=== PATIENT | female | born 1940 | race Caucasian/White ===

== ENCOUNTER → 2018-08-23 08:36 | Day surgery (SDC) | payer MEDICARE ==
[~2018-08-23 08:36] MED LIST: Acetaminophen TAB* 325 MG PO PRN; Buffered Lidocaine 1% SYRIN* 1 ML/SYRINGE INTRADERM ONE; Bupivacaine 0.25% SDV PF* 10 ML VIAL INJ ONE; Dextrose 50% Syringe 50 ML* 25 GM/50 ML SYRINGE IV PUSH PRN; Famotidine IV* 10 MG/ML 2 ML (20 mg) IV ONE; Famotidine IV* 10 MG/ML 2 ML (20 mg) ONE; Insulin LISPRO* 1 UNITS UNIT SUBCUT ONE; Ketorolac INJ* 30 MG/ML 1 ML VIAL IV PRN; Lactated Ringers 1000 ML Bag* 1,000 ML IV SCH; Lidocaine 2% PF * 5 ML VIAL ONE; Midazolam* 1 MG/ML 2 ML VIAL (2 MG) ONE; Naloxone* 0.4 MG/ML 1 ML VIAL IV PRN; Ondansetron INJ* 2 MG/ML VIAL IV PRN; Propofol* 10 MG/ML 20 ML BTL ONE; ceFAZolin 2 GM PREMIX in ORs 2 GM/50 ML BAG IVPB ONE; fentaNYL* 50 MCG/ML 2 ML VIAL (100 MCG VIAL) ONE
[2018-08-23 11:31] VITALS: BP 115/68
--- NOTE | 2018-08-23 11:54 | OP ---
OPERATIVE REPORT: DATE OF OPERATION: 08/23/18 DATE OF : 44 SURGEON: Law Finn MD. FLANGER: None. ANESTHESIOLOGIST: Dr. Morales. ANESTHESIA: Local MAC. PRE-OP DIAGNOSIS: Recurrent left carpal tunnel syndrome. POST-OP DIAGNOSIS: Recurrent left carpal tunnel syndrome. OPERATIVE PROCEDURE: Revision left carpal tunnel release. INDICATIONS: Johanna is 77. The carpal tunnel release was done over 20 years ago. It has been recurren t in that left wrist and to some extent she has had some symptoms on the right side as well, but the left side is bothering her more. I told her that we would have some nerve wraps on hand, in case the re was some scar tissue that we encountered and try to prevent any adhesions to the nerve; but all in all she wanted to proceed with surgery. ESTIMATED BLOOD LOSS: 2 mL. COMPLICATIONS: None. FINDINGS: See above and below. DESCRIPTION OF PROCEDURE: Johanna was seen in the preoperative holding area. The correct site, side, a nd procedure were identified. We came back to the operating room and the arm was prepped and draped in the usual fashion. I had anesthetized the operative area with Marcaine and a time-out was perform ed. The arm was exsanguinated with the Esmarch and the tourniquet was inflated to 250 mmHg. I went ahead and made a 2 to 3-cm longitudinal incision in the typical location for an open carpal tunnel release . Dissection was carried down through the subcutaneous tissue in the palmar fascia. There was scar tissue noted and adherence between the palmar fascia and the transverse carpal ligament. The transve rse carpal ligament was released just off the radial aspect of the hook of the hamate and the release was completed distally and proximally with the tenotomy scissors. Proximally, I did release the sub cutaneous tissue in a fashion I was able to mobilize that and retract it out of the way with the self retrainer and the Sen retractor enough, so that I had good visualization and I could safely perform the proximal release under direct visualization. Once I confirmed the release proximally and distal ly and everything was looking good, I irrigated out the wound. The skin was closed with 4-0 nylon sut ure. Soft dressings were applied and she was taken to the recovery room in stable condition. [id number]/[facility] #: [id number]
== END | disposition home or self-care (01) ==
LOC: OR 08:36
PROVIDERS: ATTEND Orthopaedic Surgery Hand Surgery
DX: G56.02 Carpal tunnel syndrome, left upper limb (principal); I48.91 Unspecified atrial fibrillation; Z79.01 Long term (current) use of anticoagulants; E11.9 Type 2 diabetes mellitus without complications; Z79.4 Long term (current) use of insulin; I10 Essential (primary) hypertension; J45.909 Unspecified asthma, uncomplicated; E78.5 Hyperlipidemia, unspecified; I44.7 Left bundle-branch block, unspecified; I25.10 Atherosclerotic heart disease of native coronary artery without angina pectoris; Z95.1 Presence of aortocoronary bypass graft; G47.33 Obstructive sleep apnea (adult) (pediatric); E66.9 Obesity, unspecified
CPT/HCPCS: J0690; J2250; J2704; J3010; J3490

== ENCOUNTER 2019-05-11 10:23 | Day surgery (SDC) | payer MEDICARE ==
[~2019-05-11 10:23] MED LIST changes: -Acetaminophen TAB* 325 MG PO PRN; -Bupivacaine 0.25% SDV PF* 10 ML VIAL INJ ONE; +Dexamethasone IV* 4 MG/ML 1 ML (4 MG) IV SLOW PU ONE; -Dextrose 50% Syringe 50 ML* 25 GM/50 ML SYRINGE IV PUSH PRN; -Famotidine IV* 10 MG/ML 2 ML (20 mg) ONE; -Insulin LISPRO* 1 UNITS UNIT SUBCUT ONE; -Ketorolac INJ* 30 MG/ML 1 ML VIAL IV PRN; -Lidocaine 2% PF * 5 ML VIAL ONE; -Midazolam* 1 MG/ML 2 ML VIAL (2 MG) ONE; -Naloxone* 0.4 MG/ML 1 ML VIAL IV PRN; -Ondansetron INJ* 2 MG/ML VIAL IV PRN; -Propofol* 10 MG/ML 20 ML BTL ONE; -ceFAZolin 2 GM PREMIX in ORs 2 GM/50 ML BAG IVPB ONE; -fentaNYL* 50 MCG/ML 2 ML VIAL (100 MCG VIAL) ONE
[2019-05-11] MEDS ORDERED: Dexamethasone IV* 4 MG/ML 1 ML (4 MG) ONE (11:36)
[2019-05-11] MEDS ORDERED: ceFAZolin 2 GM in NS PREMIX(*) 2 GM/100 ML BAG IVPB ONE (11:36)
[2019-05-11] MEDS ORDERED: Famotidine IV* 10 MG/ML 2 ML (20 mg) ONE (11:36)
[2019-05-11] MEDS ORDERED: fentaNYL* 50 MCG/ML 2 ML VIAL (100 MCG VIAL) ONE (12:22)
[2019-05-11] MEDS ORDERED: Ondansetron INJ* 2 MG/ML VIAL ONE (12:22)
[2019-05-11] MEDS ORDERED: Midazolam* 1 MG/ML 2 ML VIAL (2 MG) ONE (12:22)
[2019-05-11] MEDS ORDERED: Propofol* 10 MG/ML 20 ML BTL ONE (12:22)
[2019-05-11] MEDS ORDERED: Bupivacaine 0.25% SDV PF* 10 ML VIAL INJ ONE ×2 (12:46→13:43)
[2019-05-11] MEDS ORDERED: Naloxone* 0.4 MG/ML 1 ML VIAL IV PRN (13:10)
[2019-05-11 14:57] VITALS: BP 121/78
--- NOTE | 2019-05-11 22:05 | OP ---
DATE OF OPERATION: 05/11/[address] - [facility] DATE OF : 44 SURGEON: Law Finn MD. GATHERING WORKER: SACHIN Stratton. ANESTHESIOLOGIST: Dr. Bush. ANESTHESIA: Local MAC. PRE-OP DIAGNOSIS: Right carpal tunnel syndrome. POST-OP DIAGNOSIS: Right carpal tunnel syndrome. OPERATIVE PROCEDURE: Right open carpal tunnel release. INDICATIONS: Ms. Orourke has pretty significant carpal tunnel syndrome. She has done well with the release on the left and she is looking to get it released on the right. She understands there are risks including the risk of nerve injury. ESTIMATED BLOOD LOSS: 2 mL. COMPLICATIONS: None. FINDINGS: See above and below. DESCRIPTION OF PROCEDURE: Ms. Orourke was seen in the preoperative holding area and the correct site, side and procedure were identified. We came back to the operating room. The arm was prepped and draped in the usual fashion, and a time -out was performed. The arm was exsanguinated with the Esmarch and the tourniquet was inflated to 225 mmHg. I went ahead and made a 2 to 3 cm incision in the proximal palm longitudinally. Dissection was carried down through the subcutaneous tissue and palmar fascia. The transverse carpal ligament was released just off the radial aspect of the hook of the hamate. The release was completed distally with the tenotomy scissors. Proximally, I released the subcutaneous tissue and fascia, retracted that out of the way, and completed the release with the tenotomy scissors, releasing the rest of the transverse carpal ligament and distal antebrachial fascia. At this point, I confirmed the release. Everything looked very good. The wound was irrigated out. Skin was closed with 4-0 nylon suture. Soft dressing was applied and she was taken to the recovery room in stable condition. [id number]/[facility] #: [id number] MTDD
== END 2019-05-11 14:45 | disposition home or self-care (01) ==
LOC: OR 10:23
PROVIDERS: ATTEND Orthopaedic Surgery Hand Surgery
DX: G56.01 Carpal tunnel syndrome, right upper limb (principal); J45.909 Unspecified asthma, uncomplicated; E11.9 Type 2 diabetes mellitus without complications; Z79.4 Long term (current) use of insulin; M19.90 Unspecified osteoarthritis, unspecified site; I11.0 Hypertensive heart disease with heart failure; Z95.1 Presence of aortocoronary bypass graft; I44.7 Left bundle-branch block, unspecified
CPT/HCPCS: J0690; J1100; J2250; J2405; J2704; J3010; J3490

== ENCOUNTER 2019-06-03 10:38 | Emergency (ER) | payer MEDICARE ==
--- OUTSIDE RECORDS SUMMARY | 2019-06-03 11:12 | XMS REPORT | Continuity of Care Document ---
:1940 External Reference #:[id number] Author Name Law Finn MD (transmitted by agent of provider Desi Villegas) Address [address] [place] [address] Care Team Providers Name Role Phone Matthew Nava MD - Internal Care Team Information Safe And Vault Installer [phone] Medicine Problems Active Problems Provider Date Carpal tunnel syndrome of left wrist Law Finn MD Onset: 07/02/2018 Carpal tunnel syndrome of right wrist SACHIN Stratton Onset: 04/27/2019 Social History Type Date Description Comments Sex Unknown ETOH Use Denies alcohol use Recreational Drug Use Denies Drug Use Tobacco Use Start: Unknown Patient has never smoked Smoking Status Reviewed: 05/20/19 Patient has never smoked Exercise Type/Frequency Does not exercise Allergies, Adverse Reactions, Alerts Active Allergies Reaction Severity Comments Date Codeine 07/02/2018 Acetaminophen / Oxycodone 07/02/2018 Medications Active Medications SIG Qnty Indications Ordering Date Provider Tramadol HCL 1-2 tablets by 20tabs Law Finn, 08/23/2018 50mg mouth every 6 hours MD Tablets as needed pain Acetaminophen 2 by mouth as Unknown Tablets needed Fluticasone 1 sprays each Unknown Propionate nostril qd as 50mcg/Act needed Suspension Humalog Kwikpen sliding Unknown morning,noon and 100Unit/ML Solution night Pen-Inject Stool Softener 1 tabs by mouth Unknown 100mg three times a day Capsules Humulin N use 20 units at Unknown 100Unit/ML bedtime Suspension Lantus 136 units sq every Unknown 100Unit/ML in the morning Solution Proair HFA 2 puffs by mouth Unknown 108(90Base) every 4 hours as mcg/Act Aerosol needed Miralax take 1 packet daily Unknown 3350NF Packet as needed for constipation Flovent HFA inhale 2 puffs by Unknown 44mcg/Act mouth twice a day Aerosol Vitamin D by mouth everyday Unknown 1000Unit Tablets Montelukast Sodium 1 by mouth every Unknown 10mg day Tablets Aspirin Adult Low 1 by mouth every Unknown Dose other day. 81mg Tablets DR Plavix 1 by mouth every Unknown 75mg Tablets day Atorvastatin Calcium 1 by mouth every Unknown day 40mg Tablets Metolazone 1 tab by mouth 30 Unknown 5mg Tablets minutes in the morning before torsemide as needed Torsemide 2 by mouth every 30tabs Unknown 20mg Tablets day Paroxetine HCL 1 by mouth every Unknown 20mg day Tablets Magnesium Oxide 1 tabs twice a day Unknown 500mg Capsules Lisinopril 1 by mouth every Unknown 2.5mg day Tablets Potassium Citrate ER 1 by mouth twice Unknown daily 10Meq (1080 mg) Tablets ER Isosorbide 1 by mouth every Unknown Mononitrate ER day 60mg Tablets ER 24HR Gabapentin 1 by mouth three Unknown 300mg times a day Capsules Immunizations Description No Information Available Vital Signs Date Vital Result Comment 05/20/2019 9:57am Height 59.50 inches 4'11.50" Weight 248.00 lb Heart Rate 68 /min Respiratory Rate 16 /min Body Temperature 96.3 F Pain Level 0 O2 % BldC Oximetry 95 % BMI (Body Mass Index) 49.2 kg/m2 04/29/2019 9:55am Height 59.50 inches 4'11.50" Weight 248.00 lb Heart Rate 55 /min BP Systolic Sitting 119 mmHg BP Diastolic Sitting 70 mmHg Respiratory Rate 16 /min Body Temperature 97.9 F Pain Level 3 O2 % BldC Oximetry 97 % BMI (Body Mass Index) 49.2 kg/m2 Results Test Acquired Date Facility Test Result H/L Range Note Laboratory test 05/11/2019 [facility] Point of Care 129 mg/dL High 70-[address] [place] [address] [phone] Laboratory test 05/11/2019 [facility] Point of Care 152 mg/dL High 70-100 [address] [place] [address] [phone] 1 Glass Lined Tank Repairer: [id number] Glass Lined Tank Repairer: [id number] Procedures Date Code Description Status 05/11/2019 91533 Carpal Tunnel Release Completed 05/11/2019 63082 Carpal Tunnel Release Completed Medical Devices Description No Information Available Encounters Description No Information Available Assessments Date Code Description Provider 05/11/2019 G56.01 Carpal tunnel syndrome, right upper limb SACHIN Stratton 05/11/2019 G56.01 Carpal tunnel syndrome, right upper limb Law Finn MD 04/29/2019 G56.01 Carpal tunnel syndrome, right upper limb Law Finn MD 04/26/2019 G56.01 Carpal tunnel syndrome, right upper limb Law Finn MD Plan of Treatment Future Appointment(s):07/22/2019 10:30 am - Law Finn MD at [facility] [place] Functional Status Description No Information Available Mental Status Description No Information Available Referrals Description No Information Available
--- OUTSIDE RECORDS SUMMARY | 2019-06-03 11:12 | XMS REPORT | Continuity of Care Document ---
:1940 External Reference #:[id number] Author Name Law Finn MD (transmitted by agent of provider Sara Calderon) Address [address] [place] [id number] Care Team Providers Name Role Phone Matthew Nava MD - Internal Care Team Information Letter Sorting Machine Operator [phone] Medicine Problems Active Problems Provider Date Carpal tunnel syndrome of left wrist Law Finn MD Onset: 07/02/2018 Carpal tunnel syndrome of right wrist SACHIN Stratton Onset: 04/27/2019 Social History Type Date Description Comments Sex Unknown ETOH Use Denies alcohol use Recreational Drug Use Denies Drug Use Tobacco Use Start: Unknown Patient has never smoked Smoking Status Reviewed: 04/29/19 Patient has never smoked Exercise Type/Frequency Does not exercise Allergies, Adverse Reactions, Alerts Active Allergies Reaction Severity Comments Date Codeine 07/02/2018 Acetaminophen / Oxycodone 07/02/2018 Medications Active Medications SIG Qnty Indications Ordering Date Provider Tramadol HCL 1-2 tablets by 30tabs Law Finn, 08/23/2018 50mg mouth every 6 hours Tablets as needed pain Acetaminophen 2 by [...] Available Vital Signs Date Vital Result Comment 04/29/2019 9:55am Height 59.50 inches 4'11.50" Weight 248.00 lb Heart Rate 55 /min BP Systolic Sitting 119 mmHg BP Diastolic Sitting 70 mmHg Respiratory Rate 16 /min Body Temperature 97.9 F Pain Level 3 O2 % BldC Oximetry 97 % BMI (Body Mass Index) 49.2 kg/m2 09/03/2018 11:47am Height 59.50 inches 4'11.50" Weight 240.00 lb Heart Rate 70 /min BP Systolic Sitting 138 mmHg BP Diastolic Sitting 78 mmHg Respiratory Rate 14 /min Body Temperature 98.8 F Pain Level 4 BMI (Body Mass Index) 47.7 kg/m2 Results Description No Information Available Procedures Description No Information Available Medical Devices Description No Information Available Encounters Description No Information Available Assessments Date Code Description Provider 04/29/2019 G56.01 Carpal tunnel syndrome, right upper limb Law Finn MD 04/26/2019 G56.01 Carpal tunnel syndrome, right upper limb Law Finn MD Plan of Treatment Future Appointment(s):05/20/2019 9:45 am - Law Finn MD at [facility] [place]/30/2019 2:00 pm - SACHIN Stratton at [facility] at [facility]/11/2019 2:00 pm - Law Finn MD at [facility] at [id number]/29/2019 - Law Finn MDG56.01 Carpal tunnel syndrome, right upper limbFollow up:Follow up: 10-14 days postop Functional Status Description No Information Available Mental Status Description No Information Available Referrals Description No Information Available
--- OUTSIDE RECORDS SUMMARY | 2019-06-03 11:13 | XMS REPORT | Continuity of Care Document ---
:1940 External Reference #:[id number] Author Name Matthew Nava M.D. Address [address] [facility] [address] [place] [address] Care Team Providers Name Role Phone HCP given Care Team Information Joint Setter Unavailable Fer Dawn MD - Cardiovascular Care Team Information Joint Setter [phone] Disease Nimisha Paul MD - Care Team Information Joint Setter [phone] Ophthalmology Hilton Frank MD - Otolaryngology Care Team Information Joint Setter [facility] - Care Team Information Joint Setter Nutrition, Education Heather Peng MD - Obstetrics & Care Team Information Joint Setter Gynecology Sophia Silva MD - Physical Care Team Information Joint Setter Medicine & Rehabilitation Problems Active Problems Provider Date Coronary arteriosclerosis Matthew Nava M.D. Onset: 04/24/2010 Chronic interstitial cystitis Matthew Nava M.D. Onset: 04/24/2010 Type 2 diabetes mellitus Matthew Nava M.D. Onset: 04/24/2010 Benign essential hypertension Matthew Nava M.D. Onset: 04/24/2010 Congestive heart failure Matthew Nava M.D. Onset: 12/31/2010 Obstructive sleep apnea syndrome Matthew Nava M.D. Onset: 12/31/2010 Pure hypercholesterolemia Matthew Nava M.D. Onset: 10/03/2011 Type 2 diabetes mellitus with diabetic Matthew Nava M.D. Onset: 2014 neuropathy, unspecified Deviated nasal septum Amalia Gomes PA Onset: 05/23/2016 Mucocele of maxillary sinus Amalia Gomes PA Onset: 05/23/2016 Arthritis of temporomandibular joint Amalia Gomes PA Onset: 05/23/2016 Social History Type Date Description Comments Sex Unknown Tobacco Use Reviewed: 04/04/19 Never Smoked Cigarettes Smoking Status Reviewed: 04/04/19 Never Smoked Cigarettes ETOH Use 06/23/2016 Denies alcohol use Exercise Type/Frequency Does not exercise Allergies, Adverse Reactions, Alerts Active Allergies Reaction Severity Comments Date Percocet per pt 04/24/2010 Codeine per pt 04/24/2010 Omnicef Diffuse rash 04/04/2013 Latex 04/13/2013 Medications Active Medications SIG Qnty Indications Ordering Date Provider Lantus Solostar inject 144units 45ml E11.40 Silcoff, 11/30/2018 once daily (split Luigi Castro 100Unit/ML Solution into 2 injections Pen-Inject of 80u and 64u), at same time every day; for blood sugar control Cyclobenzaprine HCL 1/2-1 by mouth 30tabs M54.5 Silcoff, 10/04/2018 10mg three times a day Luigi Castro Tablets as needed for back pain; this medication is sedating. Onetouch Ultra Blue use as directed 300units Silcoff, 08/13/2018 4x/day for blood Luigi Castro Strips sugar testing Isosorbide Mononitrate 1 tab every 90tabs I20.9 Silcoff, 06/09/2018 ER morning; for Luigi Castro 60mg Tablets ER 24HR angina Nystatin apply to affected 60gm B37.2 Silcoff, 01/18/2018 836472Ulrn/GM area(s) three Luigi Castro Cream times a day until clear; resume as needed; for fungal rashes Paroxetine HCL 1 pill daily; for 90tabs F34.1 Silcoff, 09/16/2017 20mg mood Luigi Castro Tablets F41.9 F33.1 Nitrostat 1 every 5min as needed 100tabs Matthew Nava, 08/09/2016 0.4mg heart pain up to 3 max M.DSara Tablets Sub then call 911 if unreleaved Atorvastatin Calcium 1 by mouth every day 90tabs Matthew Nava, 2016 for high cholesterol M.D. 40mg Tablets Magnesium Oxide 1 bid E83.42 Unknown 06/22/2016 500mg Tablets Clopidogrel 1 tablet po daily Unknown 05/16/2016 Bisulfate 75mg Tablets Onetouch Ultra 2 use as directed 1units E11.40 Matthew Nava, 05/07/2016 M.D. w/Device Kit Potassium Chloride Take One Tablet By Unknown 04/23/2016 Elaine ER Mouth Twice A Day 10Meq Tablets ER Stool Softener as directed 3 times Unknown 02/25/2016 100mg daily Capsules BD Uf Orig Pen NDL Use as Directed For 300units Matthew Nava, 2015 12.6EFO10R Insulin Administration M.D. (Up To 5 Times A Day) Lancets use 4x/day for blood 300units E11.40 Matthew Nava, 01/17/2016 30G Misc sugar testing M.D. Glucometer Test use as directed 3x/day 200units E11.40 Matthew Nava, Strips for blood sugar M.D. testing Aerochamber Plus use as directed for 1units Matthew Nava, 07/09/2015 all metered dose M.D. Misc inhalers Metolazone 1 tab daily in the 30tabs R60.0 Unknown 04/09/2015 2.5mg morning 1/2 hour prior Tablets to taking toresmide;as needed for 2 pound weight gain BD Pen use as directed for 300units E11.40 Matthew Nava, 03/29/2015 Needle/Ultrafine/29G insulin administration M.D. X1/2" 12.7mm (up to 5/day) 29G X 12.7mm Misc Gabapentin 1 by mouth three times 270caps E11.40 Matthew Nava, 2014 300mg a day for nerve pain M.D. Capsules Torsemide take 2 tablets by 180tabs R60.0 Matthew Nava, 01/18/2015 20mg mouth daily in the M.D. Tablets morning; for edema I50.9 Humulin N Kwikpen inject 20 units 15ml E11.65 Kong Nicholson, 12/23/2013 nightly, before bed D.O. 100Unit/ML Supn Humalog Kwikpen Use Three Times A 15units E11.65 Matthew Nava, 2013 100Unit/ML Day Before Meals M.D. Solution Pen-Inject Per Sliding Scale For Diabetes Control Proventil HFA 2 puffs every 4 1units J45.20 Matthew Nava, 06/29/2013 108(90Base) hours as needed for M.D. mcg/Act Aerosol asthma symptoms Montelukast Sodium take one tablet by 90tabs Matthew Nava, 10/19/2012 10mg mouth every M.D. Tablets evening; for allergies and asthma Flovent HFA Inhale Two Puffs By 12units J45.30 Matthew Nava, 07/04/2011 110mcg/Act Mouth Twice A Day M.D. Aerosol (Gargle After Use) Lisinopril 1 by mouth every Fer Dawn MD 02/14/2011 2.5mg Tablets day Vitamin D 1 po qd OTC Unknown 02/14/2011 1000Unit Tablets Acetaminophen by mouth every 6 OTC Unknown 02/14/2011 500mg Tablets hours as needed for pain Fluticasone Propionate Napoleon 2 Sprays In 48units J30.9 Matthew Nava, Each Nostril Once M.D. 50mcg/Act Suspension Daily as Needed For Nasal Congestion J31.0 Aspirin 1 by mouth every other day for Unknown 04/23/2010 81mg Tablets heart disease prevention Medications Administered in Office Medication SIG Qnty Indications Ordering Provider Date injection, kenalog, 10 mg Matthew Nava M.D. 05/22/2015 Injection Immunizations CPT Code Status Date Vaccine Lot # [id number] Given 04/04/2019 Influenza Vaccine, Inactivated, Subunit, [id number] Adjuvanted, For Intrmusc 89186 Given 06/14/2018 Shingrix Zoster (Shingles) Vaccine (HZV) Recomb,Subnit,Adjuvanted 52930 Given 05/03/2018 Influenza Vaccine, Inactivated, Subunit, [id number] Adjuvanted, For Intrmusc 74234 Given 04/05/2018 Shingrix Zoster (Shingles) Vaccine (HZV) Recomb,Subnit,Adjuvanted 11058 Given 03/23/2017 Influenza Virus Vaccine, Quadrivalent, Split, [id number] Preservative Free 03534 Given 03/21/2016 Influenza Vaccine Split Virus Preservative Free Im [id number] Use 72203 Given 04/16/2015 Influenza Vaccine Split Virus Preservative Free Im [id number] Use 55333 Given 05/29/2014 Prevnar 13 [id number] 67026 Given 03/28/2014 Influenza Vaccine Split Virus Preservative Free Im [id number] Use 31431 Given 03/27/2014 Influenza Virus Vaccine Split Virus Use For Individual 3Yr Older 10035 Given 04/04/2013 Flu, Split Virus 3Yrs 89182 Given 04/05/2012 Flu, Split Virus 3Yrs [id number] 75281 Given 06/03/2011 Pneumococcal Immunization 95922 Given 03/19/2011 Flu, Split Virus 3Yrs [id number] 18350 Given 07/09/2010 Adacel or Boostrix, TDaP [id number] 57259 Given 04/24/2010 Flu, Split Virus 3Yrs [id number] 54043 Given 11/20/2008 Zostavax 82969 Given 05/24/2008 Pneumococcal Immunization 93444 Given 05/22/2008 Pneumococcal Immunization Vital Signs Date Vital Result Comment 04/04/2019 11:37am BP Systolic 132 mmHg BP Diastolic 70 mmHg Weight 248.00 lb with shoes 01/05/2019 2:34pm BP Systolic 126 mmHg BP Diastolic 58 mmHg Results Test Date Facility Test Result H/L Range Note Laboratory test 04/04/2019 In House Hemoglobin A1c 7.7 finding Laboratory test 12/03/2018 [facility] Glucose 194 mg/dL High 74-106 1 finding LABORATORY [phone] C-Peptide 2.1 ng/mL 1.1-4.4 2 Laboratory test finding 11/30/2018 In House Hemoglobin A1c 7.8 1 E11.40 2 C-Peptide reference interval is for fasting patients. Performed at: RN - [facility] [address] [id number] Weather Analyst: Esther Martinez MD, Phone: [phone] Procedures Date Code Description Status 01/05/2019 42611 Destruction Premalignant Skin Lesions, 2-14,Ea Completed 01/05/2019 93635 Destruction Premalignant Skin Lesions Completed 10/04/2018 39924 Destruction Of Skin Lesions Up To 14 Flat Completed Warts/Molluscum Contag 10/04/2018 45720 Destruction Premalignant Skin Lesions, 2-14,Ea Completed 10/04/2018 21284 Destruction Premalignant Skin Lesions Completed 09/23/2018 07603229 Mammogram Completed 05/03/2018 246004853 Diabetic Foot Exam Completed 02/17/2018 270806469 Diabetic Retinal Eye Exam Completed 11/10/2014 03769001 Colonoscopy Completed Medical Devices Description No Information Available Encounters Type Date Location Provider Dx Diagnosis Office Visit 04/04/2019 Main Office Matthew Nava, E11.40 Type 2 diabetes 11:15a M.D. mellitus with diabetic neuropathy, unsp I10 Essential (primary) hypertension I25.10 Athscl heart disease of [place] coronary artery w/o ang pctrs F33.1 Major depressive disorder, recurrent, moderate G56.01 Carpal tunnel syndrome, right upper limb Z23 Encounter for immunization Z41.8 Encntr for oth proc for purpose oth [facility] Office Visit 01/05/2019 2:30p Main Office Matthew Nava, L57.0 Actinic keratosis M.D. L82.1 Other seborrheic keratosis Office Visit 11/30/2018 11:15a Main Office Matthew Nava, Z68.42 Body mass index M.D. (BMI) 45.0-49.9, adult E11.40 Type 2 diabetes mellitus with diabetic neuropathy, unsp I10 Essential (primary) hypertension I25.10 Athscl heart disease of [place] coronary artery w/o ang pctrs F33.1 Major depressive disorder, recurrent, moderate Office Visit 10/04/2018 11:30a Main Office Matthew Nava, L57.0 Actinic keratosis M.D. L82.1 Other seborrheic keratosis M54.5 Low back pain B37.2 Candidiasis of skin and nail Assessments Date Code Description Provider 04/04/2019 E11.40 Type 2 diabetes mellitus with diabetic Matthew Nava M.D. neuropathy, unspecified 04/04/2019 I10 Essential (primary) hypertension Matthew Nava M.D. 04/04/2019 I25.10 Atherosclerotic heart disease of [place] Matthew Nava M.D. coronary artery with 04/04/2019 F33.1 Major depressive disorder, recurrent, Matthew Nava M.D. moderate 04/04/2019 G56.01 Carpal tunnel syndrome, right upper limb Matthew Nava M.D. 04/04/2019 Z23 Encounter for immunization Matthew Nava M.D. 04/04/2019 Z41.8 Encounter for other procedures for purposes Matthew Nava M.D. other than remedying health state 01/05/2019 L57.0 Actinic keratosis Matthew Nava M.D. 01/05/2019 L82.1 Other seborrheic keratosis Matthew Nava M.D. 11/30/2018 Z68.42 Body mass index (BMI) 45.0-49.9, adult Matthew Nava M.D. 11/30/2018 E11.40 Type 2 diabetes mellitus with diabetic Matthew Nava M.D. neuropathy, unsp 11/30/2018 I10 Essential (primary) hypertension Matthew Nava M.D. 11/30/2018 I25.10 Atherosclerotic heart disease of [place] Matthew Nava M.D. coronary artery with 11/30/2018 F33.1 Major depressive disorder, recurrent, Matthew Nava M.D. moderate 10/04/2018 L57.0 Actinic keratosis Matthew Nava M.D. 10/04/2018 L82.1 Other seborrheic keratosis Matthew Nava M.D. 10/04/2018 M54.5 Low back pain Matthew Nava M.D. 10/04/2018 B37.2 Candidiasis of skin and nail Matthew Nava M.D. Plan of Treatment Future Appointment(s):07/18/2019 1:15 pm - Matthew Nava M.D. at Main [facility]/04/2019 - Matthew Nava M.D.E11.40 Type 2 diabetes mellitus with diabetic neuropathy, unspecifiedNew Labs:Microalbumin,Random Urine, Ordered: Comments:A1c 7.7%. Will hold off on med adjustment as she is likely transitioning to a pump.Follow up:RTO 3-4 months w/ A[facility]c [facility] (primary[facility] hypertensionNew Labs:Basic Metabolic Panel, Ordered: 04/04/19I25.10 Atherosclerotic heart disease [place] coronary artery withNew Labs:LDL Cholesterol Profile, Ordered: SGPT/Alt, Ordered: 04/04/19F33.1 Major depressive disorder, recurrent, moderateComments:Doing reasonably well. Encouraged her to resume using her SAD lamp. Counseled her regarding how to address her garden, reviewing options and that she had the ability to work less in it, let it get overgrown, be there for her and tell him what to do w/o actually doing a lot of work herself etc.IN the end though she is essentially unwilling to make any changes at this point.G56.01 Carpal tunnel syndrome, right upper limbComments:awaiting surgery this fallZ23 Encounter for immunizationComments:Encouraged flu vaccine wc was accepted. VIS provided.Z41.8 Encounter for other procedures for purposes other than remedying health state Functional Status Description No Information Available Mental Status Description No Information Available Referrals Description No Information Available
--- OUTSIDE RECORDS SUMMARY | 2019-06-03 11:13 | XMS REPORT | Continuity of Care Document ---
:1940 External Reference #:[id number] Author Name Joy Costello NP Address [address] [place] [address] Care Team Providers Name Role Phone Matthew Nava M.D. - Family Medicine Care Team Information Multimedia Authoring Specialist Unavailable Problems Active Problems Provider Date Obstructive sleep apnea syndrome Yolanda Musa PA Onset: 04/29/2011 Chest pain Onset: 05/17/2016 Edema Onset: 01/13/2015 Congestive heart failure Onset: 01/13/2015 Social History Type Date Description Comments Sex Female Tobacco Use Start: Unknown Never Smoked Cigarettes ETOH Use Never used alcohol Recreational Drug Use Never Used Drugs Allergies, Adverse Reactions, Alerts Active Allergies Reaction Severity Comments Date Percocet 10/15/2010 Codeine 10/15/2010 Adhesives 10/15/2010 Cefdinir 12/25/2015 Latex 12/25/2015 Medications Active Medications SIG Qnty Indications Ordering Date Provider Docusate Sodium 2 Times A Day for 60caps Unknown 06/20/2015 100mg Constipation Capsules Ibuprofen Every 8 Hours for 30tabs Unknown 06/20/2015 800mg Tablets Pain Aspirin Ec Once Daily Unknown 81mg Tablets DR Atorvastatin Calcium Once Daily Unknown 40mg Tablets [facility] D3 Once Daily Unknown 1000Unit Capsules Clopidogrel Bisulfate Once Daily Unknown 75mg Tablets Escitalopram Oxalate Once Daily Unknown 10mg Tablets Gabapentin 3 Times Daily Unknown 300mg Capsules Lantus Solostar Every Morning Unknown 100Unit/ML Solution Pen-Inject Isordil Titradose Daily Unknown 40mg Tablets Magnesium Oxide 2 Times A Day Unknown 400(241.3Mg) mg Tablets Montelukast Sodium Once Daily Unknown 10mg Tablets Insulatard NPH AT Bedtime Unknown U-100 100Unit/ML Suspension Pantoprazole Sodium Once Daily 90tabs Unknown 40mg Tablets DR Ranexa 2 Times A Day Unknown 500mg Tablets ER 12HR Torsemide Once Daily Unknown 20mg Tablets Plavix 1 by mouth every Unknown 75mg Tablets day Isosorbide 1 by mouth every Unknown Mononitrate ER day 60mg Tablets ER 24HR Amlodipine Besylate daily Unknown 2.5mg Tablets Klor-Con 10 daily Unknown 10Meq Tablets ER Lipitor daily Unknown 20mg Tablets Lisinopril daliy Unknown 2.5mg Tablets Multivitamins daily Unknown Capsules Sertraline HCL 1 1/2 daily Unknown 100mg Tablets Carvedilol bid Unknown 3.125mg Tablets Stool Softener bid Unknown 100mg Capsules Magnesium Oxide 400 Two Tablets bid Unknown 400mg Tablets Vitamin C Daily Unknown 500mg Tablets Vitamin D Daily Unknown 1000Unit Capsules Baby Aspirin Daily Unknown 81mg Chewtabs Flovent HFA 2 Puffs bid Unknown 110mcg/Act Aerosol Ventolin HFA 2 puffs every 4 hrs 1units Unknown as needed only 108(90Base) mcg/ac Aerosol Fluticasone 2 sprays both 1units Unknown Propionate nostrils qd 50mcg/Act Suspension Lantus 30 Units PM Unknown 100Unit/ML Solution Humalog Kwikpen Sliding Scale Unknown 100Unit/ML Solution Ascorbic Acid TR Once Daily Unknown 500mg Tablets ER Medications Administered in Office Medication SIG Qnty Indications Ordering Provider Date Depomedrol 40md/1cc Hilton Frank M.D. 06/08/2017 Injection Dexamethasone Hilton Frank M.D. 05/20/2016 Injection Immunizations Description No Information Available Vital Signs Date Vital Result Comment 04/14/2019 3:50pm Weight 246.00 lb Height 61 inches 5'1" BMI (Body Mass Index) 46.5 kg/m2 BP Systolic 138 mmHg BP Diastolic 65 mmHg Heart Rate 96 /min O2 % BldC Oximetry 97 % Body Temperature 97.2 F [place] Score 5 Pain Level 0 04/05/2018 1:31pm Weight 250.00 lb Height 61 inches 5'1" BMI (Body Mass Index) 47.2 kg/m2 BP Systolic 134 mmHg BP Diastolic 86 mmHg Heart Rate 70 /min O2 % BldC Oximetry 98 % Body Temperature 98.1 F [place] Score 3 Pain Level 0 Results Description No Information Available Procedures Description No Information Available Medical Devices Description No Information Available Encounters Type Date Location Provider Dx Diagnosis Office Visit 04/14/2019 Main Office Joy Costello, 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
--- OUTSIDE RECORDS SUMMARY | 2019-06-03 11:13 | XMS REPORT | Continuity of Care Document ---
:1940 External Reference #:[id number] Author Name Law Finn MD (transmitted by agent of provider Glenn Hartley) Address [address] [place] [id number] Care Team Providers Name Role Phone Matthew Nava MD - Internal Care Team Information Rock Drill Operator Medicine Problems Active Problems Provider Date Carpal [...] 9:45 am - Law Finn MD at [facility] at Yslqaabw66/30/2019 1:00 pm - SACHIN Stratton at [facility] at Vcbwga5605/11/2019 1:00 pm - Law Finn MD at [facility] at Uvnztr0204/29/2019 - Law Finn MDG56.01 Carpal tunnel syndrome, right upper limbFollow up:Follow up: 10-14 days postop Functional Status Description No Information Available Mental Status Description No Information Available Referrals Description No Information Available
--- OUTSIDE RECORDS SUMMARY | 2019-06-03 11:13 | XMS REPORT | Continuity of Care Document ---
:1940 External Reference #:[id number] Author Name Joy Costello NP Address [address] [place] [address] Care Team Providers Name Role Phone Matthew Nava M.D. - Family Medicine Care Team Information Hand Assembler Unavailable Problems Active Problems Provider Date Obstructive [...] Oximetry 97 % Body Temperature 97.2 F [place] Score 5 Pain Level 0 04/05/2018 1:31pm Weight 250.00 lb Height 61 inches 5'1" BMI (Body Mass Index) 47.2 kg/m2 BP Systolic 134 mmHg BP Diastolic 86 mmHg Heart Rate 70 /min O2 % BldC Oximetry 98 % Body Temperature 98.1 F [place] Score 3 Pain Level 0 Results Description No Information Available Procedures Description No Information Available Medical Devices Description No Information Available Encounters Type Date Location Provider Dx Diagnosis Office Visit 04/14/2019 Main Office Joy Costello, 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
--- OUTSIDE RECORDS SUMMARY | 2019-06-03 11:13 | XMS REPORT | Continuity of Care Document ---
:1940 External Reference #:[id number] Author Name Joy Costello NP (transmitted by agent of provider Kasia Hinds) Address [address] [place] [address] Care Team Providers Name Role Phone Matthew Nava M.D. - Family Medicine Care Team Information Merchandise Stocker Unavailable Problems Active Problems Provider Date Obstructive [...] Oximetry 97 % Body Temperature 97.2 F Pain Level 0 04/05/2018 1:31pm Weight 250.00 lb Height 61 inches 5'1" BMI (Body Mass Index) 47.2 kg/m2 BP Systolic 134 mmHg BP Diastolic 86 mmHg Heart Rate 70 /min O2 % BldC Oximetry 98 % Body Temperature 98.1 F [place] Score 3 Pain Level 0 Results Description No Information Available Procedures Description No Information Available Medical Devices Description No Information Available Encounters Description No Information Available Assessments Description No Information Available Plan of Treatment No Information Available Functional Status Description No Information Available Mental Status Description No Information Available Referrals Description No Information Available
[2019-06-03 12:00] VITALS: BP 116/63
--- NOTE | 2019-06-03 12:37 | UC ---
Throat Pain/Nasal Ponce HPI - HPI Summary HPI Summary: Patient is a 78yo female presenting with nasal congestion, sinus pressure, cough and chest congestion x1 week. Patient states she never has colds so she thought it would just give better on its own but states it has gotten worse. Notes wheezing intermittently for which she uses Flovent. Also notes intermittent headaches. Denies shortness of breath currently. Denies vomiting. Subjective fevers and chills. Notes fatigue. Denies history of allergies and COPD. Notes history of asthma. - History of Current Complaint Chief Complaint: UCRespiratory Stated Complaint: COUGH CONGESTION Hx Obtained From: Patient Onset/Duration: Gradual Onset, Lasting Days Pain Intensity: 0 - Allergies/Home Medications Allergies/Adverse Reactions: Allergies Allergy/AdvReac Type Severity Reaction Status Date / Time codeine Allergy Unknown Verified 06/03/19 11:55 Reaction Details latex Allergy Rash Verified 06/03/19 11:55 oxycodone [From Percocet] Allergy DISORIENTED, Verified 06/03/19 11:55 HALLUCINATIONS Perfume [Fragrance] Allergy Unknown Verified 06/03/19 11:55 Reaction Details soap Allergy SENSITIVE Verified 06/03/19 11:55 PMH/Surg Hx/FS Hx/Imm Hx Endocrine History: Diabetes, Dyslipidemia Cardiovascular History: Hypertension Respiratory History: Asthma - Surgical History Surgical History: Yes Surgery Procedure, Year, and Place: TONSILLECTOMY AND ADENOIDECTOMY. CHOLECYSTECTOMY-1970. HYSTERECTOMY-1988. LIPOMAS REMOVED. APPENDECTOMY. TUBAL LIGATION. LASER PROCEDURE X 2 2004, 2006. BILATERAL CATARACT SURGERY. VITREOUS PARS PLANA. TRIPLE BYPASS-OPEN HEART SURGERY-04/2010. COLONOSCOPY-2014. PARTIAL LEFT KNEE REPLACEMENT-2013. CARDIAC CATHETERIZATION-2015, 2017. URETHRAL DILITATION X 2. LEFT HAND CARPAL TUNNEL RELEASED X 2 - Family History Known Family History: Positive: Unknown - Social History Alcohol Use: None Substance Use Type: None Smoking Status (MU): Never Smoked Tobacco Have You Smoked in the Last Year: No Review of Systems All Other Systems Reviewed And Are Negative: Yes Constitutional: Positive: Fever, Chills, Fatigue ENT: Positive: Nasal Discharge - PND, Sinus Congestion, Sinus Pain/Tenderness Respiratory: Positive: Shortness Of Breath - wheezing, Cough - dry Cardiovascular: Positive: Negative Gastrointestinal: Positive: Negative Musculoskeletal: Positive: Negative Neurological: Positive: Headache Physical Exam Triage Information Reviewed: Yes Appearance: Well-Appearing, No Pain Distress, Well-Nourished Vital Signs: Initial Vital Signs Temp 98.3 F 06/03/19 11:53 Pulse 80 06/03/19 11:53 Resp 20 06/03/19 11:53 BP 116/63 06/03/19 11:53 Pulse Ox 96 06/03/19 11:53 Vital Signs Reviewed: Yes Eyes: Positive: Conjunctiva Clear ENT: Positive: Hearing grossly normal, Pharynx normal, Nasal congestion, Nasal drainage - PND, TMs normal, Sinus tenderness - maxillary, Uvula midline. Negative: Pharyngeal erythema, Tonsillar swelling, Tonsillar exudate Neck exam: Normal Neck: Positive: Supple, Nontender, No Lymphadenopathy Respiratory Exam: Normal Respiratory: Positive: Lungs clear, Normal breath sounds, No respiratory distress, No accessory muscle use. Negative: Crackles, Rhonchi, Stridor, Wheezing Cardiovascular Exam: Normal Cardiovascular: Positive: RRR Neurological: Positive: Alert Psychological: Positive: Age Appropriate Behavior Throat Pain/Nasal Course/Dx - Course Course Of Treatment: I treated patient with Augmentin and Flonase for rhinosinusitis. Instructed to continue symptomatic treatment including use of inhaler for shortness breath and wheezing. Instructed to follow up with PCP if symptoms persist or go to the emergency room if symptoms worsen. Patient voiced understanding and agreed with the treatment plan. - Differential Dx/Diagnosis Provider Diagnosis: Sinusitis, Bronchitis, Post-nasal drip Discharge ED - Sign-Out/Discharge Documenting (check all that apply): Patient Departure All imaging exams completed and their final reports reviewed: No Studies - Discharge Plan Condition: Stable Disposition: HOME Prescriptions: Amoxicillin/Clavulanate TAB* [Augmentin TAB 875*] 875 mg PO BID #14 tab Fluticasone NASAL SPRAY 50MCG* [Flonase NASAL SPRAY 50MCG*] 2 spray BOTH NARES DAILY PRN #1 btl PRN Reason: Congestion Patient Education Materials: Rhinosinusitis (ED), Postnasal Drip (DC) Referrals: Matthew Nava MD [Primary Care Provider] - If Needed Additional Instructions: As discussed, take Augmentin for the treatment of your sinusitis. You may use the Flonase nasal spray as directed for symptomatic relief. Use your inhaler as needed for shortness of breath and wheezing. Get plenty of rest and fluids. Follow up with your primary care doctor if your symptoms do not resolve within 7 days. - Billing Disposition and Condition Condition: STABLE Disposition: Home
== END 2019-06-03 13:07 | disposition home or self-care (01) ==
LOC: UCCORT 10:38
DX: J32.9 Chronic sinusitis, unspecified (principal); J40 Bronchitis, not specified as acute or chronic; R09.82 Postnasal drip; E11.9 Type 2 diabetes mellitus without complications; I10 Essential (primary) hypertension; J45.909 Unspecified asthma, uncomplicated; Z88.5 Allergy status to narcotic agent; Z91.040 Latex allergy status; Z91.048 Other nonmedicinal substance allergy status
CPT/HCPCS: 99213; G0463

== ENCOUNTER 2019-09-19 07:31 | Day surgery (SDC) | payer MEDICARE ==
[~2019-09-19 07:31] MED LIST changes: -Dexamethasone IV* 4 MG/ML 1 ML (4 MG) IV SLOW PU ONE; -Famotidine IV* 10 MG/ML 2 ML (20 mg) IV ONE
[2019-09-19] MEDS ORDERED: ceFAZolin 2 GM PREMIX in ORs 2 GM/50 ML BAG ONE (07:58)
[2019-09-19] MEDS ORDERED: Buffered Lidocaine 1% SYRIN* 1 ML/SYRINGE INTRADERM ONE (07:58)
[2019-09-19] MEDS ORDERED: Midazolam* 1 MG/ML 2 ML VIAL (2 MG) ONE (08:13)
[2019-09-19] MEDS ORDERED: Naloxone* 0.4 MG/ML 1 ML VIAL IV PRN (08:46)
[2019-09-19] MEDS ORDERED: Ondansetron INJ* 2 MG/ML VIAL IV PRN (08:46)
[2019-09-19] MEDS ORDERED: diPHENhydraMINE IV* 50 MG/ML 1 ml VIAL (BENADRYL) IV PRN (08:46)
[2019-09-19] MEDS ORDERED: oxyCODONE TAB* 5 MG TAB PO PRN (08:46)
[2019-09-19] MEDS ORDERED: Ketorolac INJ* 30 MG/ML 1 ML VIAL IV PRN (08:46)
[2019-09-19] MEDS ORDERED: Bupivacaine 0.25% SDV PF* 10 ML VIAL INJ ONE (08:47)
[2019-09-19] MEDS ORDERED: Propofol* 500 MG/50 ML BTL ONE (09:15)
[2019-09-19] MEDS ORDERED: Propofol* 10 MG/ML 20 ML BTL ONE (09:58)
[2019-09-19] MEDS ORDERED: Bupivacaine 0.25% SDV* 30 ML ONE (10:10)
[2019-09-19] MEDS ORDERED: HYDROmorphone TAB* 2 MG PO PRN (10:57)
[2019-09-19] MEDS ORDERED: Ketorolac INJ* 30 MG/ML 1 ML VIAL ONE (11:02)
[2019-09-19 12:55] VITALS: BP 98/45
--- NOTE | 2019-09-20 05:28 | OP ---
DATE OF OPERATION: 09/19/19 - [facility] DATE OF : 44 SURGEON: Law Finn MD ASSISTANTS: SACHIN Torres. An assistant speech language pathologist was needed for the procedure to aid in positioning of the arm and retraction. ANESTHESIOLOGIST: Dr. Larson. ANESTHESIA: Local MAC. 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 OPERATIVE PROCEDURE: Right thumb interphalangeal joint fusion with autogenous distal radius bone grafting. INDICATIONS: Ms. Orourke has the aforementioned condition, it is very painful. We had talked about treatment options. She wanted to proceed with surgery. ESTIMATED BLOOD LOSS: 2 mL. COMPLICATIONS: None. FINDINGS: See above and below. DESCRIPTION OF PROCEDURE: Ms. Orourke was seen in the preoperative holding area. The correct site, side, and procedures were identified. We came back to the operating room and digital block was performed with 0.25% Marcaine. The arm was prepped and draped in the usual fashion and a time-out was performed. The arm was exsanguinated with the Esmarch and the tourniquet inflated. I made an H shaped incision over the dorsum of the IP joint. Full thickness flaps were raised off the extensor tendon. The extensor tendon was released distally. The collateral ligaments were released. The joint was booked open. The rongeur was used to remove the subchondral bone. I then placed a guidewire for the mini Acutrak screw. I then came and made a 2 cm incision just proximal to Mario Alberto's tubercle. Subperiosteal dissection was used to elevate the flaps. I made a dorsal corticotomy on the distal radius. I scooped out some cancellous bone with the curette. I then packed this into the IP joint. I drilled for my mini Acutrak screw and then placed a 30 mm mini Acutrak screw in standard fashion, this provided excellent compression. AP and lateral imaging confirmed excellent compression across the fusion site and good alignment. The wound was irrigated out. The dorsal osteophytes were excised. The tendon was repaired with 4-0 PDS suture. Skin was closed with 4-0 nylon suture. A thumb spica splint out to the tip of the thumb was applied. She was taken to the recovery room in stable condition. [id number]/[facility] #: [id number] MTDD
== END 2019-09-19 13:24 | disposition home or self-care (01) ==
LOC: OR 07:31
PROVIDERS: ATTEND Orthopaedic Surgery Hand Surgery
DX: M19.041 Primary osteoarthritis, right hand (principal); M79.641 Pain in right hand; E11.40 Type 2 diabetes mellitus with diabetic neuropathy, unspecified; E11.65 Type 2 diabetes mellitus with hyperglycemia; C44.319 Basal cell carcinoma of skin of other parts of face; I25.10 Atherosclerotic heart disease of native coronary artery without angina pectoris; I10 Essential (primary) hypertension; F33.1 Major depressive disorder, recurrent, moderate; M26.609 Unspecified temporomandibular joint disorder, unspecified side; N30.10 Interstitial cystitis (chronic) without hematuria; J45.909 Unspecified asthma, uncomplicated; G47.33 Obstructive sleep apnea (adult) (pediatric); Z79.4 Long term (current) use of insulin; Z79.899 Other long term (current) drug therapy; Z88.5 Allergy status to narcotic agent; Z91.040 Latex allergy status; Z95.1 Presence of aortocoronary bypass graft
CPT/HCPCS: 76000; C1713; C1776; J0690; J1885; J2250; J2704; J3490